=== PATIENT | male | born 1990 | race Two or more races ===

== ENCOUNTER 2018-12-18 13:19 | Emergency (ER) | payer SELFPAY ==
[2018-12-18] MEDS ORDERED: Cyclobenzaprine 10 MG TAB ONE (13:41)
[2018-12-18] MEDS ORDERED: Ketorolac Tromethamine 30 MG/ML VIAL ONE (13:41)
== END 2018-12-18 14:00 | disposition home or self-care (01) ==
LOC: ERS 13:19
DX: M54.5 Low back pain (principal); F17.210 Nicotine dependence, cigarettes, uncomplicated
CPT/HCPCS: 96372; J1885